=== PATIENT | male | born 1960 | race African-American/Black ===

== ENCOUNTER 2016-08-26 13:51 | Emergency (ER) | payer SELFPAY ==
[~2016-08-26] VITALS: Ht 170.2 cm; Wt 80.0 kg
[2016-08-26] MEDS ORDERED: SODIUM CHLORIDE 0.9% 1,000ML IVBOLUS ONE (14:00)
[2016-08-26] MEDS ORDERED: SODIUM CHLORIDE FLUSH 10ML SYR IVF ONE (14:00)
[2016-08-26 14:29] LABS: ASPARTATE AMINO TRANSFERASE 25 U/L (15-37); BLOOD UREA NITROGEN 12 mg/dL (7-18)
[2016-08-26] MEDS ORDERED: PLEASE ENTER ALLERGIES MC SCH ×2 (14:30)
[2016-08-26 18:34] VITALS: BP 114/86
== END 2016-08-26 18:50 | disposition home or self-care (01) ==
LOC: ED 18:40
DX: R41.82 Altered mental status, unspecified (principal); F10.120 Alcohol abuse with intoxication, uncomplicated; I25.10 Atherosclerotic heart disease of native coronary artery without angina pectoris
CPT/HCPCS: 36415; 70450; 80053; 80307; 85025; 93005; 96360; 99285; J7030